=== PATIENT | female | born 1945 | race Caucasian/White ===

== ENCOUNTER → 2019-12-05 13:25 | Outpatient (CLI) | payer MEDICARE, SELFPAY | PROVIDERS: PCP Family Medicine; Referring Provider Dermatology MOHS-Micrographic Surgery; Visit Provider Family Medicine | DX: I87.2 Venous insufficiency (chronic) (peripheral) (principal); S81.801A Unspecified open wound, right lower leg, initial encounter; L08.9 Local infection of the skin and subcutaneous tissue, unspecified; R60.0 Localized edema | CPT/HCPCS: 11042; 99203; 99213 ==

== ENCOUNTER → 2019-12-11 11:14 | Outpatient (CLI) | payer MEDICARE, SELFPAY | PROVIDERS: PCP Family Medicine; Referring Provider Family Medicine; Visit Provider Family Medicine | DX: S81.801A Unspecified open wound, right lower leg, initial encounter (principal); I87.2 Venous insufficiency (chronic) (peripheral); R60.0 Localized edema | CPT/HCPCS: 11042 ==

== ENCOUNTER → 2019-12-23 13:10 | Outpatient (CLI) | payer MEDICARE, SELFPAY | PROVIDERS: PCP Family Medicine; Referring Provider Family Medicine; Visit Provider Family Medicine | DX: I87.2 Venous insufficiency (chronic) (peripheral) (principal); S81.801A Unspecified open wound, right lower leg, initial encounter; R60.0 Localized edema; Z79.01 Long term (current) use of anticoagulants | CPT/HCPCS: 11043 ==

== ENCOUNTER → 2019-12-26 11:49 | Outpatient (CLI) | payer MEDICARE, SELFPAY | PROVIDERS: PCP Family Medicine; Referring Provider Family Medicine; Visit Provider Family Medicine | DX: S81.801A Unspecified open wound, right lower leg, initial encounter (principal); R60.0 Localized edema | CPT/HCPCS: 29581 ==

== ENCOUNTER → 2020-01-02 15:36 | Outpatient (CLI) | payer MEDICARE, SELFPAY | PROVIDERS: PCP Family Medicine; Referring Provider Family Medicine; Visit Provider Family Medicine | DX: S81.801A Unspecified open wound, right lower leg, initial encounter (principal); I87.2 Venous insufficiency (chronic) (peripheral); Z79.01 Long term (current) use of anticoagulants; R60.0 Localized edema | CPT/HCPCS: 97597 ==

== ENCOUNTER → 2020-01-09 13:52 | Outpatient (CLI) | payer MEDICARE, SELFPAY | PROVIDERS: PCP Family Medicine; Referring Provider Family Medicine; Visit Provider Family Medicine | DX: S81.801A Unspecified open wound, right lower leg, initial encounter (principal) | CPT/HCPCS: 97597 ==

== ENCOUNTER → 2020-01-16 13:45 | Outpatient (CLI) | payer MEDICARE, SELFPAY | PROVIDERS: PCP Family Medicine; Referring Provider Family Medicine; Visit Provider Family Medicine | DX: S81.801A Unspecified open wound, right lower leg, initial encounter (principal) | CPT/HCPCS: 99213 ==

== ENCOUNTER → 2020-01-23 09:53 | Outpatient (CLI) | payer MEDICARE, SELFPAY | PROVIDERS: PCP Family Medicine; Referring Provider Family Medicine; Visit Provider Family Medicine | DX: I87.2 Venous insufficiency (chronic) (peripheral) (principal); R60.0 Localized edema | CPT/HCPCS: 99212 ==

== ENCOUNTER → 2022-08-12 14:13 | Outpatient (CLI) | payer MEDICARE, SELFPAY ==
--- NOTE | 2022-08-12 15:00 | DI.ECHO.S_ITS ---
Interpretation Summary 1) Mildly enlarged left ventricle with mildly to moderately reduced systolic function (EF 40-45%). 2) Mildly enlarged right ventricle with moderately reduced function. 3 Very severe biatrial enlargement present. 4) A patent foramen ovale is present. 5) There is mild to moderate mitral regurgitation. 6) No prior Echo available for comparison. Procedure: A two-dimensional transthoracic echocardiogram with color flow and Doppler was performed. The study quality was technically adequate. There is no prior echocardiogram noted for this patient. Left Ventricle: The left ventricle is mildly dilated. There is normal left ventricular wall thickness. Left ventricular systolic function is mild to moderately reduced. The ejection fraction is estimated to be 40-45%. There is mild to moderate global hypokinesis of the left ventricle. Right Ventricle: The right ventricle is mildly dilated. Right ventricular systolic function is moderately reduced. Atria: Both atria are severely dilated. A patent foramen ovale is present. Mitral Valve: There is mild mitral annular calcification. There is mild to moderate mitral regurgitation. Aortic Valve: The aortic valve is normal in structure and function. There is no aortic valve stenosis. No aortic regurgitation is present. Tricuspid Valve: The tricuspid valve is normal in structure and function. There is mild tricuspid regurgitation. Pulmonary artery pressures can not be estimated because of the lack of a measurable TR jet velocity. Pulmonic Valve: The pulmonic valve is normal in structure and function. There is mild pulmonic regurgitation. Great Vessels: The aortic root is normal size. The dimensions of the ascending aorta are normal. The IVC is dilated (diameter is greater than 2.1 cm) and it collapses less than 50% with a sniff. This suggests a high right atrial pressure of 15 mm Hg. Pericardium/ Pleura There is no pericardial effusion. There is no pleural effusion. MMode/2D Measurements & Calculations LVIDd: 5.6 cm LVOT diam: 2.2 cm LVIDs: 4.0 cm Ao root diam: 3.1 cm FS: 28.2 % asc Aorta Diam: 3.3 cm IVSd: 0.90 cm LVPWd: 1.0 cm LV abad. diameter/BSA (cm/m^2): 3.1 LV sys. diameter/BSA (cm/m^2): 2.2 LA dimension: 5.0 cm RA long axis: 8.3 cm LA A2 area: 48.6 cm2 RA area: 40.6 cm2 LA A4 area: 54.3 cm2 RA vol: 167.8 ml LA length (vol): 8.7 cm RA : 92.5 ml/m2 LA vol: 257.4 ml IVC diam: 2.4 cm LA vol index: 141.9 ml/m2 TAPSE: 0.88 cm Doppler Measurements & Calculations Ao V2 max: 97.9 cm/sec LVOT Max Luis: 76.6 cm/sec Ao V2 mean: 73.3 cm/sec LV V1 max P.3 mmHg Ao max P.8 mmHg LV V1 VTI: 13.6 cm Ao mean P.3 mmHg LETICIA(I,D): 2.8 cm2 Ao V2 VTI: 18.0 cm LETICIA(V,D): 2.9 cm2 sev ratio: 0.76 LETICIA indexed to BSA (cm^2/m^2): 1.5 MV E max luis: 82.5 cm/sec SV(LVOT): 50.5 ml MV A max luis: 27.9 cm/sec MV E/A: 3.0 Med Peak E' Luis: 6.8 cm/sec E/E' med: 12.1 Lat Peak E' Luis: 14.9 cm/sec E/E' lat: 5.6 E/e' average: 8.8 MV dec time: 0.14 sec Reading Physician:04:41 PM
== END ==
PROVIDERS: PCP Physician Assistant Medical; Referring Provider Internal Medicine Cardiovascular Disease; Visit Provider Internal Medicine Cardiovascular Disease
DX: Q21.12 Patent foramen ovale (principal); I47.29 Other ventricular tachycardia; I08.1 Rheumatic disorders of both mitral and tricuspid valves
CPT/HCPCS: 93306

== ENCOUNTER → 2022-11-29 12:20 | Outpatient (CLI) | payer OTHER, SELFPAY ==
--- NOTE | 2022-11-29 | DI.ECHO.S_ITS ---
[facility]---------+ [facility] +---------+ : : [address] : : : : [id number] : : : : Phone: [phone]+ Echocardiogram Report + + :Name: GENO HE Study Date: 11/29/2022 Height: 67 in : :[facility] ReadingLocation: Weight: 155 lb : : Gender: Female BSA: 1.8 m2 : :: 1945 Age: 77 yrs BP: 133/67 mmHg: :Reason For Study: CARDIOMYOPATHY : :Ordering Physician: LUCIEN, : :ESTRELLA Performed By: Gwen Gonzalez : :Referring: ESTRELLA GALVEZ : + + Interpretation Summary 1) Mildly enlarged left ventricle with mildly reduced systolic function (EF 45-50%). 2) Normal sized right ventricle with moderately reduced function. 3 Very severe left atrial enlargement present. The right atrium is severely dilated. 4) A patent foramen ovale is present. 5) There is mild to moderate mitral regurgitation. 6) Compared to the Echo done 08/12/2022, LVEF has improved slightly from 40-45% to 45-50% on this study. Procedure: A two-dimensional transthoracic echocardiogram with color flow and Doppler was performed. The study quality was technically adequate. Comparison is made with the echocardiogram of 08/12/2022. The patient had occasional PVCs during the exam. The patient had occasional PACs during the exam. The heart rate ranged between 53-78 bpm during the study. Left Ventricle: The left ventricle is mildly dilated. There is normal left ventricular wall thickness. The ejection fraction is estimated to be 45-50%. There is mild global hypokinesis of the left ventricle. Right Ventricle: The right ventricle is normal size. Right ventricular systolic function is moderately reduced. Atria: The left atrium is severely dilated. The right atrium is severely dilated. A patent foramen ovale is present. Mitral Valve: There is mild mitral annular calcification. The mitral valve leaflets appear mildly thickened, but open well. There is mild to moderate mitral regurgitation. Aortic Valve: The aortic valve is normal in structure and function. The aortic valve is trileaflet. The aortic valve opens well. There is no aortic valve stenosis. There is trace aortic regurgitation. Tricuspid Valve: The tricuspid valve is normal in structure and function. There is mild tricuspid regurgitation. The right ventricular systolic pressure is estimated to be at least 28 mmHg based on an estimated right atrial pressure of 3 mm Hg. Pulmonic Valve: The pulmonic valve leaflets are thin and pliable; valve motion is normal. There is mild pulmonic regurgitation. Great Vessels: The aortic root is normal size. The dimensions of the ascending aorta are normal. The IVC is of normal diameter and collapses greater than 50% with a sniff. This suggests a low right atrial pressure of 3 mm Hg. Pericardium/ Pleura There is no pericardial effusion. There is no pleural effusion. MMode/2D Measurements & Calculations LVIDd: 5.7 cm LVOT diam: 2.1 cm LVIDs: 4.2 cm Ao root diam: 3.3 cm FS: 26.2 % asc Aorta Diam: 3.4 cm IVSd: 0.84 cm Ao Arch Diam (Prox Trans): 2.5 cm LVPWd: 0.74 cm LV abad. diameter/BSA (cm/m^2): 3.2 LV sys. diameter/BSA (cm/m^2): 2.3 LA A2 area: 44.7 cm2 RA long axis: 7.5 cm LA A4 area: 44.9 cm2 RA area: 32.1 cm2 LA length (vol): 8.2 cm RA vol: 117.5 ml LA vol: 206.8 ml RA : 64.8 ml/m2 LA vol index: 114.0 ml/m2 IVC diam: 1.5 cm RVD1 (basal): 3.6 cm RVD2 (mid): 3.6 cm TAPSE: 1.1 cm Doppler Measurements & Calculations Ao V2 max: 103.8 cm/sec LVOT Max Luis: 84.5 cm/sec Ao V2 mean: 76.4 cm/sec LV V1 max P.9 mmHg Ao max P.3 mmHg LV V1 VTI: 16.8 cm Ao mean P.6 mmHg LETICIA(I,D): 2.7 cm2 Ao V2 VTI: 22.7 cm LETICIA(V,D): 2.9 cm2 sev ratio: 0.74 LETICIA indexed to BSA (cm^2/m^2): 1.5 MV E max luis: 107.8 cm/sec TR max luis: 249.3 cm/sec MV A max luis: 24.5 cm/sec TR max P.9 mmHg MV E/A: 4.4 PA V2 max: 84.6 cm/sec Med Peak E' Luis: 10.2 cm/sec PA V2 mean: 59.9 cm/sec E/E' med: 10.6 PA mean P.6 mmHg Lat Peak E' Luis: 15.0 cm/sec PA pr(Accel): 29.3 mmHg E/E' lat: 7.2 E/e' average: 8.9 MV dec time: 0.13 sec SV(LVOT): 60.5 ml Reading Physician:02:53 PM
== END ==
PROVIDERS: PCP Physician Assistant Medical; Referring Provider Internal Medicine Cardiovascular Disease; Visit Provider Internal Medicine Cardiovascular Disease
DX: I08.1 Rheumatic disorders of both mitral and tricuspid valves (principal); I42.9 Cardiomyopathy, unspecified
CPT/HCPCS: 93306

== ENCOUNTER → 2023-07-04 12:18 | Outpatient (CLI) | payer OTHER, SELFPAY ==
--- NOTE | 2023-07-04 | DI.ECHO.S_ITS ---
[facility] +---------+ [facility] +---------+ : : [address] : : : : [phone] : : : : Phone: [phone] +---------+ Echocardiogram Report + + :Name: GENO HE Study Date: 07/04/2023 Height: 67 in : :[facility] ReadingLocation: Weight: 160 lb : : Gender: Female BSA: 1.8 m2 : :: 1945 Age: 78 yrs BP: 137/76 mmHg: :Reason For Study: CARDIOMYOPATHY : :Ordering Physician: LUCIEN, : :ESTRELLA Performed By: Gwen Gonzalez : :Referring: ESTRELLA GALVEZ : + + Interpretation Summary 1) Normal sized left ventricle with mildly reduced systolic function (EF about 45%). 2) Mildy enlarged right ventricle with low normal function. 3 Very severe left atrial enlargement present. The right atrium is severely dilated. 4) A patent foramen ovale is present. 5) There is mild to moderate mitral regurgitation. 6) Compared to the Echo done 11/29/2022, no significant change. Procedure: A two-dimensional transthoracic echocardiogram with color flow and Doppler was performed. The study quality was technically adequate. Comparison is made with the echocardiogram of 11/29/2022. The patient was in atrial fibrillation with heart rates between 52-70 bpm during the exam. The patient had occasional PVCs during the exam. Left Ventricle: The left ventricle is normal in size. Left ventricular wall thickness is normal. Left ventricular ejection fraction is estimated to be 45 +/- 5%. Diastolic function could not be accurately assessed due to atrial fibrillation. Right Ventricle: The right ventricle is mildly dilated. Right ventricular systolic function is at the lower limits of normal. Atria: The left atrium is severely dilated. The right atrium is severely dilated. A patent foramen ovale is present. Mitral Valve: There is mild mitral annular calcification. The mitral valve leaflets appear mildly thickened, but open well. There is mild to moderate mitral regurgitation. Aortic Valve: The aortic valve is trileaflet. The aortic valve opens well. There is no aortic valve stenosis. No aortic regurgitation is present. Tricuspid Valve: The tricuspid valve is normal in structure and function. There is mild tricuspid regurgitation. The right ventricular systolic pressure is estimated to be at least 33 mmHg based on an estimated right atrial pressure of 8 mm Hg. Pulmonic Valve: The pulmonic valve leaflets are thin and pliable; valve motion is normal. There is mild pulmonic regurgitation. Great Vessels: The aortic root is normal size. The dimensions of the ascending aorta are normal. The IVC is dilated (diameter is greater than 2.1 cm) yet it collapses greater than 50% with a sniff. This suggests a right atrial pressure of 8 mm Hg. Pericardium/ Pleura There is no pericardial effusion. There is no pleural effusion. MMode/2D Measurements & Calculations LVIDd: 5.1 cm LVOT diam: 2.3 cm LVIDs: 4.1 cm Ao root diam: 3.3 cm FS: 20.9 % asc Aorta Diam: 3.3 cm EPSS: 0.26 cm Ao Arch Diam (Prox Trans): 2.6 cm IVSd: 0.71 cm LVPWd: 1.2 cm LV abad. diameter/BSA (cm/m^2): 2.8 LV sys. diameter/BSA (cm/m^2): 2.2 LA A2 area: 44.2 cm2 RA long axis: 8.1 cm LA A4 area: 47.6 cm2 RA area: 35.1 cm2 LA length (vol): 8.7 cm RA vol: 129.7 ml LA vol: 204.5 ml RA : 70.5 ml/m2 LA vol index: 111.2 ml/m2 IVC diam: 2.2 cm RVD1 (basal): 4.1 cm RVD2 (mid): 3.2 cm TAPSE: 1.9 cm Doppler Measurements & Calculations Ao V2 max: 123.1 cm/sec LVOT Max Luis: 75.7 cm/sec Ao V2 mean: 86.2 cm/sec LV V1 max P.3 mmHg Ao max P.1 mmHg LV V1 VTI: 16.8 cm Ao mean P.3 mmHg LETICIA(I,D): 2.5 cm2 Ao V2 VTI: 28.2 cm LETICIA(V,D): 2.5 cm2 sev ratio: 0.60 LETICIA indexed to BSA (cm^2/m^2): 1.3 MV E max luis: 95.9 cm/sec PA V2 max: 78.2 cm/sec MV A max luis: 1.2 cm/sec PA V2 mean: 60.7 cm/sec MV E/A: 77.7 PA mean P.6 mmHg Med Peak E' Luis: 7.0 cm/sec PA pr(Accel): 29.3 mmHg E/E' med: 13.7 Lat Peak E' Luis: 14.4 cm/sec E/E' lat: 6.6 E/e' average: 10.2 MV dec time: 0.24 sec MR ERO: 0.21 cm2 MR PISA: 3.7 cm2 SV(LVOT): 69.3 ml MR flow rate: 117.9 cm3/sec MR PISA radius: 0.77 cm Reading Physician:04:15 PM
== END ==
PROVIDERS: PCP Physician Assistant Medical; Referring Provider Internal Medicine Cardiovascular Disease; Visit Provider Internal Medicine Cardiovascular Disease
DX: Q21.12 Patent foramen ovale (principal); I08.1 Rheumatic disorders of both mitral and tricuspid valves; I42.9 Cardiomyopathy, unspecified
CPT/HCPCS: 93306

== ENCOUNTER → 2024-07-08 09:09 | Outpatient (CLI) | payer MEDICARE, SELFPAY ==
--- NOTE | 2024-07-08 | DI.ECHO.S_ITS ---
[facility]---------[facility] : : [address] : : [place] : : [phone] : : Phone: [phone] Echocardiogram Report + + :Name: GENO HE Study Date: 07/08/2024 Height: 67 in : :[facility] ReadingLocation: Weight: 155 lb : : Gender: Female BSA: 1.8 m2 : :: 1945 Age: 79 yrs BP: 145/79 mmHg: :Reason For Study: MITRAL INSUFFICIENCY : :Ordering Physician: LUCIEN, : :ESTRELLA Performed By: Gwen Gonzalez : :Referring: ESTRELLA GALVEZ : + + Interpretation Summary 1) Normal sized left ventricle with mildly reduced systolic function (EF about 50%). 2) Mildy enlarged right ventricle with low normal function. 3) Very severe left atrial enlargement present. The right atrium is severely dilated. 4) A patent foramen ovale is present. 5) There is mild to moderate mitral regurgitation. 6) Compared to the Echo done 07/04/2023, no significant change. Procedure: A two-dimensional transthoracic echocardiogram with color flow and Doppler was performed. The study quality was technically adequate. Comparison is made with the echocardiogram of 07/04/2023. The patient had occasional PVCs during the exam. The patient was in atrial fibrillation with heart rates between 57-75 bpm during the exam. Left Ventricle: Left ventricular size is at the upper limits of normal. There is normal left ventricular wall thickness. Left ventricular ejection fraction is estimated to be 50 +/- 5%. There are no focal wall motion abnormalities. Diastolic function could not be accurately assessed due to atrial fibrillation. Right Ventricle: The right ventricle is mildly dilated. Right ventricular systolic function is at the lower limits of normal. Atria: The left atrium is severely dilated. The right atrium is severely dilated. A patent foramen ovale is present. Mitral Valve: The mitral valve leaflets appear mildly thickened, but open well. There is mild to moderate mitral annular calcification. There is a flat closure plane of the the mitral valve leaflets. There is mild to moderate mitral regurgitation. There are multiple regurgitant jets present. Aortic Valve: The aortic valve is slightly calcified. The aortic valve is trileaflet. The aortic valve opens well. There is no aortic valve stenosis. No aortic regurgitation is present. Tricuspid Valve: The tricuspid valve is not well visualized, but is grossly normal. There is mild tricuspid regurgitation. The right ventricular systolic pressure is estimated to be at least 34 mmHg based on an estimated right atrial pressure of 3 mm Hg. Pulmonic Valve: The pulmonic valve leaflets are thin and pliable; valve motion is normal. There is mild pulmonic regurgitation. Multiple jets. Great Vessels: The aortic root is normal size. The dimensions of the ascending aorta are normal. The IVC is of normal diameter and collapses greater than 50% with a sniff. This suggests a low right atrial pressure of 3 mm Hg. Pericardium/ Pleura There is no pericardial effusion. There is no pleural effusion. MMode/2D Measurements & Calculations LVIDd: 5.7 cm LVOT diam: 1.9 cm LVIDs: 4.1 cm Ao root diam: 3.3 cm FS: 27.7 % asc Aorta Diam: 3.3 cm EPSS: 1.1 cm Ao Arch Diam (Prox Trans): 2.6 cm IVSd: 0.82 cm LVPWd: 0.75 cm LV abad. diameter/BSA (cm/m^2): 3.1 LV sys. diameter/BSA (cm/m^2): 2.3 LA A2 area: 45.3 cm2 RA long axis: 8.3 cm LA A4 area: 53.1 cm2 RA area: 36.3 cm2 LA length (vol): 8.5 cm RA vol: 135.2 ml LA vol: 239.3 ml RA : 74.5 ml/m2 LA vol index: 131.9 ml/m2 IVC diam: 1.0 cm RVD1 (basal): 4.1 cm RVD2 (mid): 3.3 cm TAPSE: 1.6 cm Doppler Measurements & Calculations Ao V2 max: 109.6 cm/sec LVOT Max Luis: 77.0 cm/sec Ao V2 mean: 76.1 cm/sec LV V1 max P.4 mmHg Ao max P.8 mmHg LV V1 VTI: 16.6 cm Ao mean P.6 mmHg LETICIA(I,D): 2.1 cm2 Ao V2 VTI: 23.2 cm LETICIA(V,D): 2.0 cm2 sev ratio: 0.72 LETICIA indexed to BSA (cm^2/m^2): 1.1 MV E max luis: 89.8 cm/sec TR max luis: 276.4 cm/sec MV A max luis: 0.95 cm/sec TR max P.6 mmHg MV E/A: 94.2 PA V2 max: 68.8 cm/sec Med Peak E' Luis: 12.9 cm/sec PA V2 mean: 50.6 cm/sec E/E' med: 7.0 PA mean P.1 mmHg Lat Peak E' Luis: 14.6 cm/sec PA pr(Accel): 39.6 mmHg E/E' lat: 6.1 E/e' average: 6.6 MV dec time: 0.16 sec MR ERO: 0.34 cm2 MR PISA: 3.5 cm2 SV(LVOT): 47.7 ml MR flow rate: 194.3 cm3/sec MR PISA radius: 0.74 cm Reading Physician:09:31 AM
== END ==
LOC: ECHO 09:10
PROVIDERS: PCP Physician Assistant Medical; Referring Provider Internal Medicine Cardiovascular Disease; Visit Provider Internal Medicine Cardiovascular Disease
DX: I08.1 Rheumatic disorders of both mitral and tricuspid valves (principal); I42.9 Cardiomyopathy, unspecified
CPT/HCPCS: 93306